=== PATIENT | female | born 2000 | race African-American/Black ===

== ENCOUNTER 2021-12-14 04:34 | Emergency (ER) | payer MEDICAID ==
[~2021-12-14] VITALS: Ht 162.6 cm; Wt 82.0 kg
[2021-12-14 05:40] LABS: BASOPHILS % 0.5 % (0.0-2.0); HEMOGLOBIN. 11.2 g/dL (12.0-16.0); LYMPHOCYTES % 31.8 % (20.0-50.0); MEAN CORPUSCULAR HEMOGLOBIN 27.7 pg (28.0-32.0); MEAN CORPUSCULAR VOLUME 86.9 fL (81.0-99.0); MEAN PLATELET VOLUME 8.8 fl (7.4-10.4); MONOCYTES % 10.2 % (2.0-8.0); NEUTROPHILS % 56.5 % (40.0-76.0); PLATELET 324 x1000/uL (130-400); RED BLOOD CELL COUNT 4.03 mill/uL (4.2-5.4); RED CELL DISTRIBUTION WIDTH 14.8 % (11.6-14.6)
[2021-12-14 05:46] LABS: CHLORIDE 106 mEq/L (98-107)
[2021-12-14 05:55] LABS: ETHANOL BLOOD < 10 mg/dL
[2021-12-14 06:22] LABS: HCG SCREEN NEGATIVE
[2021-12-14] MEDS ORDERED: LORAZEPAM 2MG/ML CPJ IM STA (10:36)
[2021-12-14] MEDS: OLANZAPINE 10 MG/VIAL IM ONE ×2 (11:06→12:52)
[2021-12-14] MEDS: OLANZAPINE 5MG TABLET PO SCH ×2 (11:06→18:33)
[2021-12-14 18:00] LABS: CLARITY URINE CLEAR (CLEAR); COLOR URINE DARK YELLOW (YELLOW); KETONES URINE 1+ (NEGATIVE); LEUKOCYTE ESTERASE URINE NEGATIVE (NEGATIVE); NITRITE URINE NEGATIVE (NEGATIVE); OCCULT BLOOD URINE NEGATIVE (NEGATIVE); PROTEIN URINE TRACE (NEGATIVE); SPECIFIC GRAVITY URINE 1.028 (1.005-1.030); UROBILINOGEN URINE 0.2 E.U./dL (0.2-1.0)
[2021-12-14 18:25] LABS: *BARBITURATES SCREEN URINE NEGATIVE (NEGATIVE); *BENZODIAZEPINES SCREEN URINE NEGATIVE (NEGATIVE); *COCAINE SCREEN URINE NEGATIVE (NEGATIVE); CANNABINOID URINE SCREEN NEGATIVE (NEGATIVE); METHADONE URINE SCREEN NEGATIVE (NEGATIVE); OPIATES URINE SCREEN NEGATIVE (NEGATIVE); PHENCYCLIDINE URINE SCREEN NEGATIVE (NEGATIVE)
[2021-12-14 18:32] LABS: *AMPHETAMINES SCREEN URINE PRESUMTIVE POSITIVE (NEGATIVE)
[2021-12-15] MEDS: OLANZAPINE 5MG TABLET PO SCH ×2 (10:37→17:00)
[2021-12-16] MEDS: OLANZAPINE 5MG TABLET PO SCH ×2 (08:39→16:35)
[2021-12-16] MEDS ORDERED: OLANZAPINE 10 MG/VIAL IM ONE (17:45)
[2021-12-17] MEDS: OLANZAPINE 5MG TABLET PO SCH ×2 (11:43→14:03)
[2021-12-19 08:04] VITALS: BP 121/69
== END 2021-12-19 12:07 | disposition home or self-care (01) ==
LOC: ER 04:34 → EDBD 04:34 → ER 12-19 12:07
DX: F29 Unspecified psychosis not due to a substance or known physiological condition (principal); F15.10 Other stimulant abuse, uncomplicated; F19.10 Other psychoactive substance abuse, uncomplicated; Z20.822 Contact with and (suspected) exposure to COVID-19
CPT/HCPCS: 36415; 70450; 80053; 80305; 80320; 81003; 82962; 84703; 85025; 96372; 99291; C9803; J2060; J3490; U0003; U0005; Z7610; G0480

== ENCOUNTER 2022-05-01 16:31 | Emergency (ER) | payer MEDICAID ==
[~2022-05-01] VITALS: Ht 167.6 cm; Wt 77.0 kg
[2022-05-01 17:54] LABS: HEMATOCRIT. 34.7 % (36.0-48.0); HEMOGLOBIN. 11.4 g/dL (12.0-16.0); MEAN CORPUSCULAR HEMOGLOBIN 29.3 pg (28.0-32.0); MEAN CORPUSCULAR VOLUME 89.4 fL (81.0-99.0); MEAN PLATELET VOLUME 7.9 fl (7.4-10.4); PLATELET 294 x1000/uL (130-400); RED BLOOD CELL COUNT 3.89 mill/uL (4.2-5.4); RED CELL DISTRIBUTION WIDTH 13.5 % (11.6-14.6)
[2022-05-01 17:58] LABS: CHLORIDE 103 mEq/L (98-107)
[2022-05-01 18:12] LABS: ETHANOL BLOOD < 10 mg/dL
[2022-05-01 18:26] LABS: CLARITY URINE CLOUDY (CLEAR); COLOR URINE DARK YELLOW (YELLOW); KETONES URINE 1+ (NEGATIVE); LEUKOCYTE ESTERASE URINE TRACE (NEGATIVE); NITRITE URINE NEGATIVE (NEGATIVE); OCCULT BLOOD URINE 1+ (NEGATIVE); PH URINE 5.5 (4.5-8.0); PROTEIN URINE 2+ (NEGATIVE); SPECIFIC GRAVITY URINE 1.032 (1.005-1.030)
[2022-05-01 18:39] LABS: *BARBITURATES SCREEN URINE NEGATIVE (NEGATIVE); *BENZODIAZEPINES SCREEN URINE NEGATIVE (NEGATIVE); *COCAINE SCREEN URINE NEGATIVE (NEGATIVE); CANNABINOID URINE SCREEN NEGATIVE (NEGATIVE); METHADONE URINE SCREEN NEGATIVE (NEGATIVE); OPIATES URINE SCREEN NEGATIVE (NEGATIVE); PHENCYCLIDINE URINE SCREEN NEGATIVE (NEGATIVE)
[2022-05-01 18:55] LABS: *AMPHETAMINES SCREEN URINE PRESUMTIVE POSITIVE (NEGATIVE)
[2022-05-01] MEDS ORDERED: POTASSIUM CHLORIDE 20MEQ TABLET SR PO ONE (19:30)
[2022-05-01] MEDS ORDERED: NITROFURANTOIN 100MG M/M CAPSULE PO ONE (19:30)
[2022-05-01 19:59] LABS: PLATELET ESTIMATE NORMAL
[2022-05-01] MEDS ORDERED: POTASSIUM CHLORIDE 20MEQ TABLET SR PO NR (22:30)
[2022-05-01] MEDS ORDERED: NITROFURANTOIN 100MG M/M CAPSULE PO NR (22:30)
[2022-05-02] MEDS ORDERED: BACITRACIN ZINC OINT UDPKT TOP ONE (07:00)
[2022-05-02] MEDS ORDERED: ESCI20TA MT (10:44)
[2022-05-02] MEDS ORDERED: ABIL5 PO (10:44)
[2022-05-02 11:10] VITALS: BP 122/74
== END 2022-05-02 11:22 | disposition home or self-care (01) ==
LOC: ER 16:31
DX: F15.10 Other stimulant abuse, uncomplicated (principal); N39.0 Urinary tract infection, site not specified; E87.6 Hypokalemia; Z20.822 Contact with and (suspected) exposure to COVID-19; F22 Delusional disorders; I10 Essential (primary) hypertension
CPT/HCPCS: 36415; 80053; 80305; 80320; 81003; 81025; 85025; 99285; C9803; U0003; U0005; G0480

== ENCOUNTER 2022-05-20 00:49 | Emergency (ER) | payer MEDICAID ==
[~2022-05-20] VITALS: Ht 157.5 cm; Wt 75.0 kg
[~2022-05-20 00:49] MED LIST: ABIL5 PO; ESCI20TA MT
[2022-05-20 00:55] VITALS: BP 136/90
== END 2022-05-20 03:00 | disposition home or self-care (01) ==
LOC: ER 00:54
DX: Z60.8 Other problems related to social environment (principal); Z59.00 Homelessness unspecified
CPT/HCPCS: 99283

== ENCOUNTER 2022-05-20 02:06 | Emergency (ER) | payer MEDICAID | END 2022-05-20 02:20 | disposition left against medical advice (07) | LOC: ER 02:06 | DX: Z53.21 Procedure and treatment not carried out due to patient leaving prior to being seen by health care provider (principal) ==